=== PATIENT | female | born 1935 | race African-American/Black ===

== ENCOUNTER 2017-04-12 20:32 | Inpatient (IN) | payer MEDICARE, BC, MEDICAID ==
[~2017-04-12] VITALS: Ht 162.6 cm; Wt 81.6 kg
[~2017-04-12 20:32] MED LIST: AMLO5TAB88 PO; CLON0.1T PO; COR3 PO; FOLI-43 PO; FURO40TA5 PO; GABA-531 PO; IPRA3AMP IH; METOLAZONE PO; TRAM50TA3 PO; VITAMIN C PO; ZINC SULFATE PO
[2017-04-12] MEDS ORDERED: ALBUTEROL (0.5%) 2.5MG/0.5ML NEB HHN ONE (22:15)
[2017-04-12] MEDS ORDERED: DIPHENHYDRAMINE 50MG/ML VIAL IV PRN (22:45)
[2017-04-12] MEDS ORDERED: HYDROCODONE/ACETAMINOPHEN 5/325MG TABLET PO PRN (22:45)
[2017-04-12] MEDS ORDERED: LORAZEPAM 2MG/ML CPJ IV PRN (22:45)
[2017-04-12] MEDS ORDERED: ONDANSETRON HCL 4MG/2ML VIAL IV PRN (22:45)
[2017-04-12] MEDS ORDERED: NA PHOS,M-B/NA PHOS,DI-BA ENEMA 118ML PR PRN (22:45)
[2017-04-12] MEDS ORDERED: ACETAMINOPHEN 325MG TABLET PO PRN (22:45)
[2017-04-12] MEDS ORDERED: CLONIDINE 0.1MG TABLET PO PRN (22:45)
[2017-04-12] MEDS ORDERED: GUAIFENESIN 200MG/10ML SUGAR FREE UDC PO PRN (22:45)
[2017-04-12] MEDS ORDERED: MAGNESIUM/ALUMINUM HYDROXIDE/SIMETHICONE 30ML UDC PO PRN (22:45)
[2017-04-12] MEDS ORDERED: VANCOMYCIN 1 G PREMIX 200 ML IV SCH (22:45)
[2017-04-12] MEDS ORDERED: HYDROMORPHONE HCL/PF 2MG/ML CPJ IV PRN (22:45)
[2017-04-12] MEDS ORDERED: DOCUSATE SODIUM 100MG CAPSULE PO PRN (22:45)
[2017-04-12 22:48] LABS: BASOPHILS % 0.5 % (0.0-2.0); HEMATOCRIT. 37.4 % (36.0-48.0); HEMOGLOBIN. 11.9 g/dL (12.0-16.0); LYMPHOCYTES % 20.5 % (20.0-50.0); MEAN CORPUSCULAR HEMOGLOBIN 27.4 pg (28.0-32.0); MEAN CORPUSCULAR VOLUME 86.1 fL (81.0-99.0); MEAN PLATELET VOLUME 8.5 fl (7.4-10.4); MONOCYTES % 5.3 % (2.0-8.0); NEUTROPHILS % 70.7 % (40.0-76.0); PLATELET 209 x1000/uL (130-400); RED BLOOD CELL COUNT 4.35 mill/uL (4.2-5.4); RED CELL DISTRIBUTION WIDTH 15.4 % (11.6-14.6)
[2017-04-12 22:54] LABS: CHLORIDE 110 mEq/L (98-107)
[2017-04-12 22:55] LABS: INR 1.1; PROTHROMBIN TIME 11.3 sec
[2017-04-12 23:01] LABS: CARBON DIOXIDE 28 mEq/L (21-32)
[2017-04-12] MEDS ORDERED: METHYLPREDNISOLONE SOD SUCC 125 MG/2 ML VIAL IV ONE (23:15)
[2017-04-12] MEDS ORDERED: CEFTRIAXONE 1 G PREMIX 50 ML IV ONE (23:15)
[2017-04-12] MEDS ORDERED: SODIUM POLYSTYRENE SULFONATE 15 G/60 ML BOT PO ONE (23:30)
[2017-04-12 23:41] LABS: CLARITY URINE CLOUDY (CLEAR); COLOR URINE YELLOW (YELLOW); GLUCOSE URINE NEGATIVE (NEGATIVE); KETONES URINE NEGATIVE (NEGATIVE); LEUKOCYTE ESTERASE URINE 3+ (NEGATIVE); NITRITE URINE NEGATIVE (NEGATIVE); OCCULT BLOOD URINE 1+ (NEGATIVE); PH URINE 5.5 (4.5-8.0); PROTEIN URINE NEGATIVE (NEGATIVE); SPECIFIC GRAVITY URINE 1.013 (1.005-1.030); UROBILINOGEN URINE 0.2 E.U./dL (0.2-1.0)
[2017-04-13] VITALS (7 sets, daily range): BP systolic 125–182; BP diastolic 72–101
[2017-04-13] MEDS ORDERED: VANCOMYCIN 1 G PREMIX 200 ML IV NR (04:30)
[2017-04-13] MEDS ORDERED: CLONIDINE 0.1MG TABLET PO PRN (04:45)
[2017-04-13] MEDS ORDERED: IPRATROPIUM/ALBUTEROL 0.5-3(2.5)MG/3ML NEB HHN PRN (04:45)
[2017-04-13] MEDS ORDERED: TRAMADOL 50MG TABLET PO PRN (04:45)
[2017-04-13] MEDS ORDERED: DEXTROSE 50% WATER 50ML SYRINGE IV PRN (04:45)
[2017-04-13] MEDS: BLOOD SUGAR DIAGNOSTIC STRIP TEST SCH ×4 (06:00→21:00)
[2017-04-13] MEDS ORDERED: LEVOFLOXACIN 500MG PREMIX 100 ML IV NR (06:00)
[2017-04-13] MEDS: METHYLPREDNISOLONE SOD SUCC 125 MG/2 ML VIAL IV SCH ×3 (06:15→17:49)
[2017-04-13 06:19] LABS: CHLORIDE 109 mEq/L (98-107)
[2017-04-13 06:36] LABS: BASOPHILS % 0.2 % (0.0-2.0); EOSINOPHILS % 1.1 % (0.0-5.0); HEMATOCRIT. 35.5 % (36.0-48.0); HEMOGLOBIN. 11.5 g/dL (12.0-16.0); LYMPHOCYTES % 12.4 % (20.0-50.0); MEAN CORPUSCULAR HEMOGLOBIN 27.9 pg (28.0-32.0); MEAN CORPUSCULAR VOLUME 85.7 fL (81.0-99.0); MEAN PLATELET VOLUME 8.8 fl (7.4-10.4); MONOCYTES % 1.7 % (2.0-8.0); NEUTROPHILS % 84.6 % (40.0-76.0); PLATELET 224 x1000/uL (130-400); RED BLOOD CELL COUNT 4.14 mill/uL (4.2-5.4); RED CELL DISTRIBUTION WIDTH 15.6 % (11.6-14.6)
[2017-04-13 06:48] LABS: CARBON DIOXIDE 23 mEq/L (21-32); TROPONIN I < 0.02 ng/mL (0.00-0.04)
[2017-04-13] MEDS: INSULIN LISPRO 100 UNITS/ML SUBCUT SCH ×4 (08:10→21:00)
[2017-04-13] MEDS ORDERED: METOLAZONE 2.5 MG PO SCH (09:00)
[2017-04-13] MEDS ORDERED: VITAMIN C 500 MG PO SCH (09:00)
[2017-04-13] MEDS ORDERED: ZINC SULFATE 220 MG PO SCH (09:00)
[2017-04-13] MEDS: CARVEDILOL 6.25 MG TABLET PO SCH ×2 (09:22→20:59)
[2017-04-13] MEDS: ASPIRIN 81MG EC TABLET PO SCH (09:26)
[2017-04-13] MEDS: AMLODIPINE 10MG TABLET PO SCH (09:26)
[2017-04-13] MEDS: FUROSEMIDE 40MG TABLET PO SCH ×2 (09:28→17:48)
[2017-04-13] MEDS: METOLAZONE 2.5MG TABLET PO SCH ×2 (09:28→17:48)
[2017-04-13] MEDS: ZINC SULFATE 220 MG ( 50 ) CAPSULE PO SCH (09:32)
[2017-04-13] MEDS: GABAPENTIN 300MG CAPSULE PO SCH (09:32)
[2017-04-13] MEDS: FOLIC ACID 1MG TABLET PO SCH (09:33)
[2017-04-13] MEDS: ASCORBIC ACID 500 MG TABLET PO SCH (09:34)
[2017-04-13] MEDS: ENOXAPARIN 40MG/0.4ML SYR SUBCUT SCH (09:37)
[2017-04-14] VITALS: BP 136/85
[2017-04-14] MEDS: METHYLPREDNISOLONE SOD SUCC 125 MG/2 ML VIAL IV SCH ×4 (00:09→18:29)
[2017-04-14 04:00] VITALS: BP 139/87
[2017-04-14] MEDS: VANCOMYCIN 750 MG PREMIX 150 ML IV SCH (04:11)
[2017-04-14] MEDS ORDERED: VANCOMYCIN 500 MG PREMIX 100 ML IV SCH (05:00)
[2017-04-14] MEDS: BLOOD SUGAR DIAGNOSTIC STRIP TEST SCH ×4 (05:58→21:45)
[2017-04-14] MEDS: LEVOFLOXACIN 250MG PREMIX 50 ML IV SCH (06:00)
[2017-04-14 06:17] LABS: CHLORIDE 105 mEq/L (98-107)
[2017-04-14 06:27] LABS: CARBON DIOXIDE 23 mEq/L (21-32)
[2017-04-14 08:00] VITALS: BP 132/78
[2017-04-14] MEDS: ASPIRIN 81MG EC TABLET PO SCH (08:45)
[2017-04-14] MEDS: METOLAZONE 2.5MG TABLET PO SCH ×2 (08:45→16:26)
[2017-04-14] MEDS: FUROSEMIDE 40MG TABLET PO SCH (08:45)
[2017-04-14] MEDS: ZINC SULFATE 220 MG ( 50 ) CAPSULE PO SCH (08:45)
[2017-04-14] MEDS: FOLIC ACID 1MG TABLET PO SCH (08:45)
[2017-04-14] MEDS: ASCORBIC ACID 500 MG TABLET PO SCH (08:45)
[2017-04-14] MEDS: ENOXAPARIN 40MG/0.4ML SYR SUBCUT SCH (08:46)
[2017-04-14] MEDS: AMLODIPINE 10MG TABLET PO SCH (08:47)
[2017-04-14] MEDS: CARVEDILOL 6.25 MG TABLET PO SCH ×2 (08:47→21:44)
[2017-04-14] MEDS: INSULIN LISPRO 100 UNITS/ML SUBCUT SCH ×4 (09:00→21:43)
[2017-04-14] MEDS: GABAPENTIN 300MG CAPSULE PO SCH (09:05)
[2017-04-14] MEDS: IPRATROPIUM/ALBUTEROL 0.5-3(2.5)MG/3ML NEB INH PRN ×3 (09:19→16:54)
[2017-04-14 12:00] VITALS: BP 126/79
[2017-04-14 16:08] VITALS: BP 135/81
[2017-04-14 20:00] VITALS: BP 118/73
[2017-04-15] VITALS: BP 128/60
[2017-04-15] MEDS: METHYLPREDNISOLONE SOD SUCC 125 MG/2 ML VIAL IV SCH ×3 (01:07→12:54)
[2017-04-15 04:00] VITALS: BP 133/54
[2017-04-15] MEDS: VANCOMYCIN 750 MG PREMIX 150 ML IV SCH (06:01)
[2017-04-15 07:04] LABS: HEMATOCRIT. 36.3 % (36.0-48.0); HEMOGLOBIN. 11.6 g/dL (12.0-16.0); MEAN CORPUSCULAR VOLUME 84.3 fL (81.0-99.0); MEAN PLATELET VOLUME 8.8 fl (7.4-10.4); PLATELET 235 x1000/uL (130-400); RED BLOOD CELL COUNT 4.31 mill/uL (4.2-5.4); RED CELL DISTRIBUTION WIDTH 15.1 % (11.6-14.6)
[2017-04-15] MEDS: LEVOFLOXACIN 250MG PREMIX 50 ML IV SCH (07:20)
[2017-04-15] MEDS: BLOOD SUGAR DIAGNOSTIC STRIP TEST SCH ×2 (07:31→12:54)
[2017-04-15 08:00] VITALS: BP 120/77
[2017-04-15] MEDS: INSULIN LISPRO 100 UNITS/ML SUBCUT SCH ×2 (08:37→13:59)
[2017-04-15] MEDS: FUROSEMIDE 40MG TABLET PO SCH (08:39)
[2017-04-15] MEDS: GABAPENTIN 300MG CAPSULE PO SCH (08:39)
[2017-04-15] MEDS: ASCORBIC ACID 500 MG TABLET PO SCH (08:39)
[2017-04-15] MEDS: AMLODIPINE 10MG TABLET PO SCH (08:39)
[2017-04-15] MEDS: CARVEDILOL 6.25 MG TABLET PO SCH (08:39)
[2017-04-15] MEDS: FOLIC ACID 1MG TABLET PO SCH (08:39)
[2017-04-15] MEDS: ASPIRIN 81MG EC TABLET PO SCH (08:39)
[2017-04-15] MEDS: METOLAZONE 2.5MG TABLET PO SCH (08:39)
[2017-04-15] MEDS: ZINC SULFATE 220 MG ( 50 ) CAPSULE PO SCH (08:39)
[2017-04-15] MEDS: ENOXAPARIN 40MG/0.4ML SYR SUBCUT SCH (08:40)
[2017-04-15 09:06] LABS: PLATELET ESTIMATE NORMAL
[2017-04-15 12:00] VITALS: BP 121/69
[2017-04-15 15:59] VITALS: BP 126/65
[2017-04-15 16:00] VITALS: BP 126/65
[2017-04-16] MEDS ORDERED: VANCOMYCIN 750 MG PREMIX 150 ML IV SCH (18:00)
== END 2017-04-15 16:30 | DRG 602 ==
LOC: ER 21:41 → 7WST 23:17 → ENRESERV 23:56
PROVIDERS: ADMIT Internal Medicine; ATTEND Internal Medicine
DX: L03.119 Cellulitis of unspecified part of limb (principal); N18.6 End stage renal disease; N17.0 Acute kidney failure with tubular necrosis; J44.1 Chronic obstructive pulmonary disease with (acute) exacerbation; E46 Unspecified protein-calorie malnutrition; I13.2 Hypertensive heart and chronic kidney disease with heart failure and with stage 5 chronic kidney disease, or end stage renal disease; E87.5 Hyperkalemia; D64.9 Anemia, unspecified; S81.812A Laceration without foreign body, left lower leg, initial encounter; E03.9 Hypothyroidism, unspecified; E11.22 Type 2 diabetes mellitus with diabetic chronic kidney disease; F03.90 Unspecified dementia, unspecified severity, without behavioral disturbance, psychotic disturbance, mood disturbance, and anxiety; I25.10 Atherosclerotic heart disease of native coronary artery without angina pectoris; I50.9 Heart failure, unspecified; I71.9 Aortic aneurysm of unspecified site, without rupture; K21.9 Gastro-esophageal reflux disease without esophagitis; M48.00 Spinal stenosis, site unspecified; M19.90 Unspecified osteoarthritis, unspecified site; E11.40 Type 2 diabetes mellitus with diabetic neuropathy, unspecified; Z79.899 Other long term (current) drug therapy; Z82.49 Family history of ischemic heart disease and other diseases of the circulatory system; Z86.73 Personal history of transient ischemic attack (TIA), and cerebral infarction without residual deficits; Z88.8 Allergy status to other drugs, medicaments and biological substances; Z88.0 Allergy status to penicillin; Z91.013 Allergy to seafood; Z68.30 Body mass index [BMI] 30.0-30.9, adult
CPT/HCPCS: 36415; 71010; 80048; 80053; 80202; 81001; 82962; 83605; 84484; 85025; 85610; 87040; 93005; 94640; 96374; 96375; 97163; 97166; 99285; C1893; J0696; J1650; J1815; J1956; J2930; J3370; J7611; J7620

== ENCOUNTER 2017-09-04 06:05 | Emergency (ER) | payer MEDICARE, BC, MEDICAID ==
[~2017-09-04] VITALS: Ht 162.6 cm; Wt 75.0 kg
[~2017-09-04 06:05] MED LIST changes: -IPRA3AMP IH; +IPRA3AMP9 IH
[2017-09-04] MEDS ORDERED: HYDROCODONE/ACETAMINOPHEN 5/325MG TABLET PO ONE (06:30)
[2017-09-04 07:19] LABS: BASOPHILS % 0.9 % (0.0-2.0); EOSINOPHILS % 1.4 % (0.0-5.0); HEMATOCRIT. 35.9 % (36.0-48.0); HEMOGLOBIN. 11.7 g/dL (12.0-16.0); LYMPHOCYTES % 15.1 % (20.0-50.0); MEAN CORPUSCULAR HEMOGLOBIN 27.8 pg (28.0-32.0); MEAN CORPUSCULAR VOLUME 85.1 fL (81.0-99.0); MEAN PLATELET VOLUME 7.9 fl (7.4-10.4); MONOCYTES % 4.9 % (2.0-8.0); NEUTROPHILS % 77.7 % (40.0-76.0); PLATELET 402 x1000/uL (130-400); RED BLOOD CELL COUNT 4.22 mill/uL (4.2-5.4); RED CELL DISTRIBUTION WIDTH 14.4 % (11.6-14.6)
[2017-09-04 07:35] LABS: CARBON DIOXIDE 36 mEq/L (21-32); CHLORIDE 101 mEq/L (98-107); TROPONIN I < 0.02 ng/mL (0.00-0.04)
[2017-09-04 07:38] LABS: INR 1.1; PROTHROMBIN TIME 11.5 sec (9.4-11.6)
[2017-09-04 07:40] LABS: CLARITY URINE CLEAR (CLEAR); COLOR URINE YELLOW (YELLOW); KETONES URINE NEGATIVE (NEGATIVE); LEUKOCYTE ESTERASE URINE 1+ (NEGATIVE); NITRITE URINE NEGATIVE (NEGATIVE); OCCULT BLOOD URINE NEGATIVE (NEGATIVE); PH URINE 5.5 (4.5-8.0); PROTEIN URINE NEGATIVE (NEGATIVE); SPECIFIC GRAVITY URINE 1.014 (1.005-1.030); UROBILINOGEN URINE 0.2 E.U./dL (0.2-1.0)
[2017-09-04 12:00] VITALS: BP 150/94
== END 2017-09-04 12:06 | disposition home or self-care (01) ==
LOC: ER 06:05 → CANBEDREQ 11:36 → ER 12:06
DX: G62.9 Polyneuropathy, unspecified (principal); I11.0 Hypertensive heart disease with heart failure; M10.9 Gout, unspecified; M85.80 Other specified disorders of bone density and structure, unspecified site; H91.90 Unspecified hearing loss, unspecified ear; Z88.0 Allergy status to penicillin; Z88.8 Allergy status to other drugs, medicaments and biological substances
CPT/HCPCS: 36415; 71010; 73630; 80053; 81001; 83880; 84484; 84550; 85025; 85610; 85651; 87086; 93005; 93971; 99285

== ENCOUNTER 2017-10-25 10:03 | Inpatient (IN) | payer MEDICARE, MEDICAID ==
[~2017-10-25] VITALS: Ht 160 cm; Wt 70.8 kg
[2017-10-25] MEDS ORDERED: IPRATROPIUM BROMIDE (0.02%) 0.5MG/2.5ML NEB HHN STA (10:51)
[2017-10-25] MEDS ORDERED: METHYLPREDNISOLONE SOD SUCC 125 MG/2 ML VIAL IV STA (10:51)
[2017-10-25] MEDS ORDERED: ALBUTEROL (0.083%) 2.5MG/3ML NEB HHN SCH (11:00)
[2017-10-25 11:28] LABS: BASOPHILS % 0.8 % (0.0-2.0); EOSINOPHILS % 0.4 % (0.0-5.0); HEMATOCRIT. 33.1 % (36.0-48.0); HEMOGLOBIN. 11.2 g/dL (12.0-16.0); LYMPHOCYTES % 14.1 % (20.0-50.0); MEAN CORPUSCULAR HEMOGLOBIN 28.7 pg (28.0-32.0); MEAN CORPUSCULAR VOLUME 85.3 fL (81.0-99.0); MEAN PLATELET VOLUME 8.5 fl (7.4-10.4); MONOCYTES % 7.2 % (2.0-8.0); NEUTROPHILS % 77.5 % (40.0-76.0); PLATELET 220 x1000/uL (130-400); RED BLOOD CELL COUNT 3.88 mill/uL (4.2-5.4); RED CELL DISTRIBUTION WIDTH 15.7 % (11.6-14.6)
[2017-10-25 11:34] LABS: INR 1.1; PROTHROMBIN TIME 11.6 sec (9.4-11.6)
[2017-10-25 11:44] LABS: CHLORIDE 94 mEq/L (98-107); ETHANOL BLOOD < 10 mg/dL; TROPONIN I < 0.02 ng/mL (0.00-0.04)
[2017-10-25] MEDS ORDERED: ASPIRIN 81MG TABLET PO ONE (11:45)
[2017-10-25] MEDS ORDERED: SODIUM CHLORIDE 0.45% 1,000 ML IV SCH (11:51)
[2017-10-25] MEDS ORDERED: HYDROCODONE/ACETAMINOPHEN 5/325MG TABLET PO PRN (12:00)
[2017-10-25] MEDS ORDERED: LORAZEPAM 2MG/ML CPJ IV PRN (12:00)
[2017-10-25] MEDS ORDERED: HYDROMORPHONE HCL/PF 2MG/ML CPJ IV PRN (12:00)
[2017-10-25] MEDS ORDERED: DOCUSATE SODIUM 100MG CAPSULE PO PRN (12:00)
[2017-10-25] MEDS ORDERED: DIPHENHYDRAMINE 50MG/ML VIAL IV PRN (12:00)
[2017-10-25] MEDS ORDERED: NA PHOS,M-B/NA PHOS,DI-BA ENEMA 118ML PR PRN (12:00)
[2017-10-25] MEDS ORDERED: ONDANSETRON HCL 4MG/2ML VIAL IV PRN (12:00)
[2017-10-25] MEDS ORDERED: CLONIDINE 0.1MG TABLET PO PRN (12:00)
[2017-10-25] MEDS ORDERED: IPRATROPIUM/ALBUTEROL 0.5-3(2.5)MG/3ML NEB INH PRN (12:00)
[2017-10-25] MEDS ORDERED: GUAIFENESIN 200MG/10ML SUGAR FREE UDC PO PRN (12:00)
[2017-10-25] MEDS ORDERED: ACETAMINOPHEN 325MG TABLET PO PRN (12:00)
[2017-10-25] MEDS ORDERED: MAGNESIUM/ALUMINUM HYDROXIDE/SIMETHICONE 30ML UDC PO PRN (12:00)
[2017-10-25 20:00] VITALS: BP 109/68
[2017-10-25 20:30] VITALS: BP 109/68
[2017-10-25] MEDS ORDERED: ALLO100T PO (21:04)
[2017-10-25] MEDS ORDERED: POTASSIUM CHLORIDE 20MEQ TABLET SR PO NR (21:15)
[2017-10-25] MEDS ORDERED: LEVOFLOXACIN 500MG PREMIX 100 ML IV NR (22:00)
[2017-10-25] MEDS: ENOXAPARIN 30MG/0.3ML SYR SUBCUT SCH (22:21)
[2017-10-25] MEDS: VANCOMYCIN HCL 1000 MG/20 ML ORAL PO SCH (23:29)
[2017-10-25] MEDS: DEXT 5%/0.45% NACL KCL 10MEQ/L 1,000 ML IV SCH (23:29)
[2017-10-26] VITALS: BP 103/60
[2017-10-26 04:00] VITALS: BP 109/63
[2017-10-26] MEDS: VANCOMYCIN HCL 1000 MG/20 ML ORAL PO SCH ×4 (05:31→23:50)
[2017-10-26 06:45] LABS: BASOPHILS % 0.1 % (0.0-2.0); HEMATOCRIT. 29.4 % (36.0-48.0); HEMOGLOBIN. 9.7 g/dL (12.0-16.0); LYMPHOCYTES % 11.1 % (20.0-50.0); MEAN CORPUSCULAR HEMOGLOBIN 27.9 pg (28.0-32.0); MEAN CORPUSCULAR VOLUME 84.6 fL (81.0-99.0); MEAN PLATELET VOLUME 8.5 fl (7.4-10.4); MONOCYTES % 1.7 % (2.0-8.0); NEUTROPHILS % 87.1 % (40.0-76.0); PLATELET 218 x1000/uL (130-400); RED BLOOD CELL COUNT 3.47 mill/uL (4.2-5.4); RED CELL DISTRIBUTION WIDTH 15.1 % (11.6-14.6)
[2017-10-26 07:24] LABS: CHLORIDE 96 mEq/L (98-107)
[2017-10-26 07:33] LABS: HDL CHOLESTEROL 88 mg/dL (40-59); LDL CHOLESTEROL 75 mg/dL (5-100); T4 FREE 1.35 ng/dL (0.76-1.46)
[2017-10-26 08:00] VITALS: BP 101/56
[2017-10-26] MEDS: GABAPENTIN 300MG CAPSULE PO SCH (08:19)
[2017-10-26] MEDS: ASPIRIN 81MG EC TABLET PO SCH (08:19)
[2017-10-26] MEDS: ASCORBIC ACID 500 MG TABLET PO SCH (08:19)
[2017-10-26] MEDS: ZINC SULFATE 220 MG ( 50 ) CAPSULE PO SCH (08:19)
[2017-10-26] MEDS: METOLAZONE 2.5MG TABLET PO SCH ×2 (08:19→20:41)
[2017-10-26] MEDS: ALLOPURINOL 100 MG TABLET PO SCH (08:19)
[2017-10-26] MEDS: FOLIC ACID 1MG TABLET PO SCH (08:19)
[2017-10-26] MEDS: CARVEDILOL 6.25 MG TABLET PO SCH ×2 (08:27→20:36)
[2017-10-26] MEDS: AMLODIPINE 10MG TABLET PO SCH (08:27)
[2017-10-26] MEDS ORDERED: VITAMIN C 500 MG PO SCH (09:00)
[2017-10-26] MEDS ORDERED: ZINC SULFATE 220 MG PO SCH (09:00)
[2017-10-26] MEDS ORDERED: METOLAZONE 2.5 MG PO SCH (09:00)
[2017-10-26 12:43] VITALS: BP 115/71
[2017-10-26 16:00] VITALS: BP 99/54
[2017-10-26] MEDS: DEXT 5%/0.45% NACL KCL 10MEQ/L 1,000 ML IV SCH (16:10)
[2017-10-26 20:00] VITALS: BP 107/66
[2017-10-26] MEDS: LEVOFLOXACIN 250MG PREMIX 50 ML IV SCH (20:40)
[2017-10-26] MEDS: ENOXAPARIN 30MG/0.3ML SYR SUBCUT SCH (20:41)
[2017-10-27] VITALS: BP 103/43
[2017-10-27 04:00] VITALS: BP 104/60
[2017-10-27] MEDS: DEXT 5%/0.45% NACL KCL 10MEQ/L 1,000 ML IV SCH ×2 (05:24→23:35)
[2017-10-27] MEDS: VANCOMYCIN HCL 1000 MG/20 ML ORAL PO SCH ×4 (05:24→23:33)
[2017-10-27 06:18] LABS: BASOPHILS % 0.3 % (0.0-2.0); HEMATOCRIT. 26.9 % (36.0-48.0); HEMOGLOBIN. 8.6 g/dL (12.0-16.0); LYMPHOCYTES % 7.6 % (20.0-50.0); MEAN CORPUSCULAR HEMOGLOBIN 27.5 pg (28.0-32.0); MEAN CORPUSCULAR VOLUME 86.1 fL (81.0-99.0); MEAN PLATELET VOLUME 8.8 fl (7.4-10.4); MONOCYTES % 4.8 % (2.0-8.0); NEUTROPHILS % 87.3 % (40.0-76.0); PLATELET 172 x1000/uL (130-400); RED BLOOD CELL COUNT 3.12 mill/uL (4.2-5.4); RED CELL DISTRIBUTION WIDTH 15.3 % (11.6-14.6)
[2017-10-27] MEDS: GABAPENTIN 300MG CAPSULE PO SCH (08:11)
[2017-10-27] MEDS: FOLIC ACID 1MG TABLET PO SCH (08:11)
[2017-10-27] MEDS: ASPIRIN 81MG EC TABLET PO SCH (08:11)
[2017-10-27] MEDS: ALLOPURINOL 100 MG TABLET PO SCH (08:11)
[2017-10-27] MEDS: ZINC SULFATE 220 MG ( 50 ) CAPSULE PO SCH (08:12)
[2017-10-27] MEDS: METOLAZONE 2.5MG TABLET PO SCH ×2 (08:12→21:00)
[2017-10-27] MEDS: ASCORBIC ACID 500 MG TABLET PO SCH (08:12)
[2017-10-27] MEDS: AMLODIPINE 10MG TABLET PO SCH (08:13)
[2017-10-27] MEDS: CARVEDILOL 6.25 MG TABLET PO SCH ×2 (08:13→21:00)
[2017-10-27 08:28] VITALS: BP 108/70
[2017-10-27] MEDS ORDERED: LINEZOLID 600MG TABLET PO NR (09:00)
[2017-10-27] MEDS: METRONIDAZOLE 500 MG PREMIX 100 ML IV SCH ×2 (11:01→17:49)
[2017-10-27 12:00] VITALS: BP 110/71
[2017-10-27 16:10] VITALS: BP 101/68
[2017-10-27 20:00] VITALS: BP 97/55
[2017-10-27] MEDS: LEVOFLOXACIN 250MG PREMIX 50 ML IV SCH (20:54)
[2017-10-27] MEDS: LINEZOLID 600MG TABLET PO SCH (20:55)
[2017-10-27] MEDS: ENOXAPARIN 30MG/0.3ML SYR SUBCUT SCH (20:57)
[2017-10-28] VITALS: BP_SYST 91; BP_SYST 96; BP_DIAS 58; BP_DIAS 59
[2017-10-28] MEDS: METRONIDAZOLE 500 MG PREMIX 100 ML IV SCH ×3 (01:17→17:50)
[2017-10-28 04:00] VITALS: BP 112/69
[2017-10-28] MEDS: VANCOMYCIN HCL 1000 MG/20 ML ORAL PO SCH ×3 (05:25→18:00)
[2017-10-28 06:09] LABS: BASOPHILS % 0.2 % (0.0-2.0); EOSINOPHILS % 0.3 % (0.0-5.0); HEMATOCRIT. 25.4 % (36.0-48.0); HEMOGLOBIN. 8.5 g/dL (12.0-16.0); LYMPHOCYTES % 14.9 % (20.0-50.0); MEAN CORPUSCULAR HEMOGLOBIN 28.4 pg (28.0-32.0); MEAN CORPUSCULAR VOLUME 85.1 fL (81.0-99.0); MEAN PLATELET VOLUME 8.5 fl (7.4-10.4); MONOCYTES % 6.2 % (2.0-8.0); NEUTROPHILS % 78.4 % (40.0-76.0); PLATELET 195 x1000/uL (130-400); RED BLOOD CELL COUNT 2.98 mill/uL (4.2-5.4); RED CELL DISTRIBUTION WIDTH 14.9 % (11.6-14.6)
[2017-10-28 08:00] VITALS: BP 96/59
[2017-10-28] MEDS: GABAPENTIN 300MG CAPSULE PO SCH (10:13)
[2017-10-28] MEDS: ASPIRIN 81MG EC TABLET PO SCH (10:13)
[2017-10-28] MEDS: ALLOPURINOL 100 MG TABLET PO SCH (10:13)
[2017-10-28] MEDS: METOLAZONE 2.5MG TABLET PO SCH ×2 (10:13→20:25)
[2017-10-28] MEDS: ZINC SULFATE 220 MG ( 50 ) CAPSULE PO SCH (10:13)
[2017-10-28] MEDS: FOLIC ACID 1MG TABLET PO SCH (10:14)
[2017-10-28] MEDS: AMLODIPINE 10MG TABLET PO SCH (10:14)
[2017-10-28] MEDS: CARVEDILOL 6.25 MG TABLET PO SCH ×2 (10:16→21:00)
[2017-10-28] MEDS: ASCORBIC ACID 500 MG TABLET PO SCH (10:17)
[2017-10-28] MEDS: LINEZOLID 600MG TABLET PO SCH ×2 (10:17→20:26)
[2017-10-28 12:16] VITALS: BP 101/61
[2017-10-28 16:27] VITALS: BP 98/53
[2017-10-28 20:00] VITALS: BP 96/50
[2017-10-28] MEDS: DEXT 5%/0.45% NACL KCL 10MEQ/L 1,000 ML IV SCH (20:00)
[2017-10-28] MEDS: LEVOFLOXACIN 250MG PREMIX 50 ML IV SCH (20:27)
[2017-10-28] MEDS: ENOXAPARIN 30MG/0.3ML SYR SUBCUT SCH (20:27)
[2017-10-29] VITALS: BP 96/58
[2017-10-29] MEDS: VANCOMYCIN HCL 1000 MG/20 ML ORAL PO SCH ×3 (01:18→18:04)
[2017-10-29] MEDS: METRONIDAZOLE 500 MG PREMIX 100 ML IV SCH ×3 (01:18→18:04)
[2017-10-29] MEDS ORDERED: POTASSIUM CHLORIDE 20MEQ TABLET SR PO NR (03:00)
[2017-10-29 04:00] VITALS: BP 98/58
[2017-10-29] MEDS: DEXT 5%/0.45% NACL KCL 10MEQ/L 1,000 ML IV SCH (05:03)
[2017-10-29 08:00] VITALS: BP 109/61
[2017-10-29 08:05] LABS: BASOPHILS % 0.1 % (0.0-2.0); EOSINOPHILS % 0.8 % (0.0-5.0); HEMATOCRIT. 27.1 % (36.0-48.0); HEMOGLOBIN. 8.7 g/dL (12.0-16.0); LYMPHOCYTES % 13.7 % (20.0-50.0); MEAN CORPUSCULAR HEMOGLOBIN 27.4 pg (28.0-32.0); MEAN CORPUSCULAR VOLUME 85.1 fL (81.0-99.0); MEAN PLATELET VOLUME 8.8 fl (7.4-10.4); MONOCYTES % 6.3 % (2.0-8.0); NEUTROPHILS % 79.1 % (40.0-76.0); PLATELET 261 x1000/uL (130-400); RED BLOOD CELL COUNT 3.19 mill/uL (4.2-5.4); RED CELL DISTRIBUTION WIDTH 15.5 % (11.6-14.6)
[2017-10-29] MEDS: AMLODIPINE 10MG TABLET PO SCH (09:00)
[2017-10-29] MEDS: CARVEDILOL 6.25 MG TABLET PO SCH ×2 (09:00→19:57)
[2017-10-29] MEDS: ASPIRIN 81MG EC TABLET PO SCH (09:53)
[2017-10-29] MEDS: GABAPENTIN 300MG CAPSULE PO SCH (09:53)
[2017-10-29] MEDS: ALLOPURINOL 100 MG TABLET PO SCH (09:53)
[2017-10-29] MEDS: ASCORBIC ACID 500 MG TABLET PO SCH (09:53)
[2017-10-29] MEDS: ZINC SULFATE 220 MG ( 50 ) CAPSULE PO SCH (09:53)
[2017-10-29] MEDS: METOLAZONE 2.5MG TABLET PO SCH ×2 (09:53→19:57)
[2017-10-29] MEDS: FOLIC ACID 1MG TABLET PO SCH (09:53)
[2017-10-29] MEDS: LINEZOLID 600MG TABLET PO SCH ×2 (09:54→20:11)
[2017-10-29 12:00] VITALS: BP 114/77
[2017-10-29 16:00] VITALS: BP 101/70
[2017-10-29 19:52] VITALS: BP 118/69
[2017-10-29] MEDS: LEVOFLOXACIN 250MG PREMIX 50 ML IV SCH (19:56)
[2017-10-29] MEDS: ENOXAPARIN 30MG/0.3ML SYR SUBCUT SCH (19:56)
[2017-10-29 22:43] LABS: CLARITY URINE CLOUDY (CLEAR); COLOR URINE YELLOW (YELLOW); KETONES URINE NEGATIVE (NEGATIVE); LEUKOCYTE ESTERASE URINE 3+ (NEGATIVE); NITRITE URINE NEGATIVE (NEGATIVE); OCCULT BLOOD URINE 1+ (NEGATIVE); PH URINE 5.5 (4.5-8.0); PROTEIN URINE NEGATIVE (NEGATIVE); SPECIFIC GRAVITY URINE 1.011 (1.005-1.030); UROBILINOGEN URINE 0.2 E.U./dL (0.2-1.0)
[2017-10-30] VITALS: BP 101/58
[2017-10-30] MEDS: METRONIDAZOLE 500 MG PREMIX 100 ML IV SCH ×3 (01:01→17:56)
[2017-10-30] MEDS: VANCOMYCIN HCL 1000 MG/20 ML ORAL PO SCH ×4 (01:01→17:57)
[2017-10-30 04:00] VITALS: BP 139/64
[2017-10-30] MEDS: DEXT 5%/0.45% NACL KCL 10MEQ/L 1,000 ML IV SCH ×2 (05:19→14:31)
[2017-10-30 07:08] LABS: BASOPHILS % 0.1 % (0.0-2.0); EOSINOPHILS % 0.9 % (0.0-5.0); HEMATOCRIT. 26.9 % (36.0-48.0); LYMPHOCYTES % 13.3 % (20.0-50.0); MEAN CORPUSCULAR HEMOGLOBIN 28.8 pg (28.0-32.0); MEAN CORPUSCULAR VOLUME 85.6 fL (81.0-99.0); MEAN PLATELET VOLUME 8.3 fl (7.4-10.4); MONOCYTES % 4.9 % (2.0-8.0); NEUTROPHILS % 80.8 % (40.0-76.0); PLATELET 246 x1000/uL (130-400); RED BLOOD CELL COUNT 3.14 mill/uL (4.2-5.4); RED CELL DISTRIBUTION WIDTH 15.7 % (11.6-14.6)
[2017-10-30 08:00] VITALS: BP 116/67
[2017-10-30] MEDS ORDERED: POTASSIUM CHLORIDE 20MEQ TABLET SR PO NR (08:15)
[2017-10-30] MEDS: ASPIRIN 81MG EC TABLET PO SCH (08:26)
[2017-10-30] MEDS: ZINC SULFATE 220 MG ( 50 ) CAPSULE PO SCH (08:26)
[2017-10-30] MEDS: FOLIC ACID 1MG TABLET PO SCH (08:26)
[2017-10-30] MEDS: ASCORBIC ACID 500 MG TABLET PO SCH (08:26)
[2017-10-30] MEDS: GABAPENTIN 300MG CAPSULE PO SCH (08:26)
[2017-10-30] MEDS: ALLOPURINOL 100 MG TABLET PO SCH (08:27)
[2017-10-30] MEDS: CARVEDILOL 6.25 MG TABLET PO SCH (08:27)
[2017-10-30] MEDS: METOLAZONE 2.5MG TABLET PO SCH (08:28)
[2017-10-30] MEDS: AMLODIPINE 10MG TABLET PO SCH (08:28)
[2017-10-30] MEDS: LINEZOLID 600MG TABLET PO SCH (08:28)
[2017-10-30 16:00] VITALS: BP 114/62
[2017-10-30 18:50] VITALS: BP 114/62
[2017-10-30] MEDS: LEVOFLOXACIN 250MG PREMIX 50 ML IV SCH (19:59)
[2017-10-30 20:00] VITALS: BP 105/67
== END 2017-10-30 20:35 | disposition home health service (06) | DRG 871 ==
LOC: ER 10:28 → 8WST 11:42 → EDBEDREQ 11:44 → ENRESERV 19:33
PROVIDERS: ADMIT Internal Medicine; ATTEND Internal Medicine
DX: A41.9 Sepsis, unspecified organism (principal); J69.0 Pneumonitis due to inhalation of food and vomit; N17.9 Acute kidney failure, unspecified; G93.41 Metabolic encephalopathy; A04.72 Enterocolitis due to Clostridium difficile, not specified as recurrent; I95.9 Hypotension, unspecified; I13.0 Hypertensive heart and chronic kidney disease with heart failure and stage 1 through stage 4 chronic kidney disease, or unspecified chronic kidney disease; E87.6 Hypokalemia; D64.9 Anemia, unspecified; E86.0 Dehydration; E88.09 Other disorders of plasma-protein metabolism, not elsewhere classified; F03.90 Unspecified dementia, unspecified severity, without behavioral disturbance, psychotic disturbance, mood disturbance, and anxiety; I25.10 Atherosclerotic heart disease of native coronary artery without angina pectoris; I27.20 Pulmonary hypertension, unspecified; I50.9 Heart failure, unspecified; J44.9 Chronic obstructive pulmonary disease, unspecified; N18.9 Chronic kidney disease, unspecified; Z79.899 Other long term (current) drug therapy; Z82.49 Family history of ischemic heart disease and other diseases of the circulatory system; Z86.73 Personal history of transient ischemic attack (TIA), and cerebral infarction without residual deficits; Z88.0 Allergy status to penicillin; Z88.8 Allergy status to other drugs, medicaments and biological substances; Z91.013 Allergy to seafood
CPT/HCPCS: 36415; 70450; 70551; 71045; 74176; 80048; 80053; 80061; 81001; 82550; 83690; 83880; 84439; 84443; 84484; 85025; 85610; 87040; 87086; 87493; 92610; 93005; 96374; 97163; 99285; A6261; C1893; G0482; J1200; J1650; J1956; J2930; J3370; J3490; J7030; J7620